=== PATIENT | male | born 1965 | race Caucasian/White ===

== ENCOUNTER 2019-12-24 11:53 | Outpatient (CLI) | payer OTHER, SELFPAY ==
--- NOTE | ~2019-12-24 | US_ITS ---
EXAMINATION: US venous doppler [facility] DATE: 12/24/2019 12:32 INDICATION: Lower limb edema, left leg injury TECHNIQUE: Barragan scale images without and with compression and Doppler images of the bilateral lower e xtremity veins were obtained. COMPARISON: None. FINDINGS: The right common femoral vein, profunda femoral vein, femoral vein, popliteal vein, peroneal trunk, p osterior tibial veins, and greater saphenous vein are patent. The left common femoral vein, profunda femoral vein, femoral vein, popliteal vein, peroneal trunk, po sterior tibial veins, and greater saphenous vein are patent. There is a 4.4 x 2.3 x 0.7 cm complex ar ea in the anterior aspect of the left mid calf without identifiable internal vascularity. IMPRESSION: 1. Patent bilateral lower extremity veins. No evidence of deep venous thrombosis. 2. Complex area in the left anterior calf which likely reflects a hematoma given history of trauma. C onsider further imaging if the palpable abnormality does not improve 10-14 days. Reviewed, dictated and finalized at location B. IMPRESSION: 1. Patent bilateral lower extremity veins. No evidence of deep venous thrombosi s. 2. Complex area in the left anterior calf which likely reflects a hematoma give n history of trauma. Consider further imaging if the palpable abnormality does not improve 10-14 days.
== END 2019-12-24 11:54 | disposition home or self-care (01) ==
LOC: CHSIMG 11:55
PROVIDERS: PCP Internal Medicine; Visit Provider Internal Medicine
DX: R60.9 Edema, unspecified (principal); R42 Dizziness and giddiness; E78.5 Hyperlipidemia, unspecified
CPT/HCPCS: 93970

== ENCOUNTER 2019-12-25 16:40 | Outpatient (CLI) | payer OTHER, SELFPAY ==
[2019-12-25 16:52] LABS: Basophils Absolute Auto 0.05 K/mm3 (0.00-0.10); Basophils Percent Auto 0.7 % (0.0-1.0); Eosinophils Absolute Auto 0.26 K/mm3 (0.02-0.50); Eosinophils Percent Auto 3.5 % (1.0-6.0); Hemoglobin 14.5 g/dL (14.0-18.0); Immature Granulocyte Absolute 0.02 K/mm3 (0.00-0.00); Immature Granulocyte Percent A 0.3 % (0.0-0.0); Lymphocytes Absolute Auto 2.38 K/mm3 (1.10-4.50); Lymphocytes Percent Auto 31.7 % (18.0-42.0); Mean Corpuscular Hemoglobin 29.8 pg (27.0-31.0); Mean Corpuscular Volume 90.5 fL (78.0-102.0); Mean Platelet Volume 9.3 fl (8.7-11.0); Monocytes Percent Auto 13.3 % (2.0-11.0); Neutrophils Absolute Auto 3.8 K/mm3 (1.7-7.2); Neutrophils Percent Auto 50.5 % (50.0-70.0); Platelet Count Result 334 K/mm3 (150-420); Red Blood Count 4.86 M/mm3 (4.70-6.10); White Blood Count 7.5 K/mm3 (4.8-10.8)
[2019-12-25 16:53] LABS: Add Urine Microscopic? NO; Appearance Urine Clear (Clear); Bilirubin Urine Negative (Negative); Blood Urine Negative (Negative); Color Urine Yellow (Yellow); Glucose Urine UA Negative (Negative); Ketones Urine Negative (Negative); Leukocyte Esterase Ur Negative (Negative); Nitrate Urine Negative (Negative); Protein Urine Negative (Negative); Specific Grav Ur >= 1.030 (1.010-1.020); Urobilinogen Urine 0.2 mg/dL (0.2-1.0); pH Urine 5.5 (5.0-8.0)
[2019-12-25 17:09] LABS: BNP < 5.0 pg/mL (0-100)
[2019-12-25 17:35] LABS: Alanine Aminotransferase 23 U/L (16-63); Albumin Level 4.1 g/dL (3.4-5.0); Alkaline Phosphatase 97 U/L (46-116); Anion Gap 11.9 mmol/L (7-16); Aspartate Amino Transferase 16 U/L (15-37); Bilirubin,Total 0.4 mg/dL (0.00-1.00); Blood Urea Nitrogen 16 mg/dL (7-18); Calcium 8.6 mg/dL (8.5-10.1); Carbon Dioxide 29 mmol/L (21-32); Chloride 103 mmol/L (98-108); Cholesterol 235 mg/dL (0-200); Estimated Glomerular Filt Rate > 60; Glucose 100 mg/dL (70-99); HDL Direct 38 mg/dL (40-60); LDL Cholesterol Calculated 173 mg/dL (<130); Osmolality Calculated 291 mOsm/kg (285-295); Potassium 3.9 mmol/L (3.5-5.1); Sodium 140 mmol/L (136-145); Thyroid Stimulating Hormone 0.81 uIU/mL (0.36-3.74); Total Protein 7.4 g/dL (6.4-8.2); Triglycerides 120 mg/dL (0-150)
== END 2019-12-25 16:41 | disposition home or self-care (01) ==
PROVIDERS: PCP Internal Medicine; Visit Provider Internal Medicine
DX: R60.0 Localized edema (principal); R42 Dizziness and giddiness; E78.5 Hyperlipidemia, unspecified
CPT/HCPCS: 36415; 80053; 80061; 81003; 83880; 84443; 85025

== ENCOUNTER 2020-06-11 00:44 | Outpatient (CLI) | payer OTHER, SELFPAY ==
[2020-06-11 18:03] LABS: SARS-CoV-2 RNA PCR Negative
== END 2020-06-11 00:45 | disposition home or self-care (01) ==
LOC: ANHCOVIDDT 00:45
PROVIDERS: PCP Internal Medicine; Visit Provider Internal Medicine Gastroenterology
DX: Z01.812 Encounter for preprocedural laboratory examination (principal); Z20.828 Contact with and (suspected) exposure to other viral communicable diseases
CPT/HCPCS: 87635; C9803; U0003

== ENCOUNTER 2020-06-14 01:50 | Day surgery (SDC) | payer OTHER, SELFPAY ==
[2020-06-09 13:28] VITALS: BMI 26.6
[2020-06-14 07:10] VITALS: BP 118/77; PULSE 79; RESP 16; TEMP 36.6; O2SAT 100; BMI 26.2
[2020-06-14] MEDS: LACTATED RINGERS 1,000 ML 150 ML IV CONT (07:27)
--- NOTE | 2020-06-14 07:41 | WPDANESEPPF ---
Anes - Initial Pre Proc Eval Procedure: Operation Date: 06/14/20 08:00 Proposed Procedures p Esophagogastroduodenoscopy & Screening Colonoscopy - Kirill Mcclellan MD Date/Time: 06/14/20 07:41 Surgeon: Kirill Mcclellan MD Pre Op Diagnosis: Green's Esophagus Patient Data Age: 54 Gender: M Height: 5 ft 9 in Weight: 80.7 kg Last Vital Signs Temp 36.6 C 06/14/20 07:10 Pulse 79 06/14/20 07:10 Resp 16 06/14/20 07:10 BP 118/77 06/14/20 07:10 Pulse Ox 100 06/14/20 07:10 Allergies Allergy/AdvReac Type Severity Reaction Status Date / Time Contrast Media Allergy Severe pt stated Uncoded 06/14/20 07:08 anaphylaxis symptoms Home Medications Medication Instructions Recorded Confirmed Type peg 3350-electrolytes 236 240 ml PO Q10M #4000 ml 05/25/20 Rx gram-22.74 gram-6.74 gram-5.86 gram solution Ranitadine 300 mg PO DAILY 06/09/20 06/09/20 History alprazolam 2 mg PO BID PRN 06/09/20 06/09/20 History atorvastatin 10 mg PO DAILY 06/09/20 06/09/20 History omeprazole 40 mg PO DAILY 06/09/20 06/09/20 History Patient hx anesthesia problems: none Family hx anesthesia problems: none PMFSH Past Medical History Medical History Anxiety Green esophagus Colon cancer screening GERD with esophagitis Tobacco abuse Social History Social History Smoking packs per day: 1 Smoking cigarettes per day: 20.0 Years smoked: 20 Smoking pack-years: 20.00 Smoking status: Current every day smoker Tobacco type: cigarettes Alcohol intake: never Substance use: current Substance use type: marijuana Other substance usage details: 1-2 EVERY 2 OR 3 MONTHS Last use: 03/2020 Living arrangements: alone Spiritual care concerns: No Anes - Eval Final PreProcedure Day of Procedure 06/14/20 07:41 Patient weight: overweight Heart: regular rate and rhythm Lungs: decreased breath sounds Airway: Mallampati scale class II Neurological: alert and oriented Last oral intake: >/= 8 hours ASA classification: III Emergent: no Anesthetic plan: proceed Anesthesia type and monitoring: general GIVS and standard monitoring Informed Consent: The patient's anesthetic plan and its attendant risks and benefits were discussed with the patient/family/POA. Questions were solicited and answers provided to the satisfaction of the patient/family/POA.
--- NOTE | 2020-06-14 08:07 | PM.HPGS ---
History of Present Illness History of Present Illness Consent: Risks, benefits, and alternatives have been discussed and questions answered. Patient agrees to proceed with procedure. Chief complaint: Sifuentes's Esophagus Narrative: Ascencion Sánchez is a 54 year old male with sifuentes's last egd more than 3 years ago, also due to have a colonoscopy Review of Systems Constitutional: Constitutional: Denies headache(s) and Denies weakness Eyes: Eyes: Denies blurry vision ENT: Reports Normal hearing present, Denies headache(s) and Denies neck pain Cardiovascular: Cardiovascular: Denies chest pain and Denies dyspnea Respiratory: Respiratory: Denies dyspnea Gastrointestinal: Gastrointestinal: Reports no additional gastrointestinal complaints Genitourinary: Genitourinary: Denies dysuria Musculoskeletal: Musculoskeletal: Denies neck pain Integumentary/Breasts: Skin/Breast: Denies dry skin Neurologic: Reports Normal hearing present, Denies headache(s) and Denies weakness Psychiatric: Psychiatric: Denies anxiety Endocrine: Endocrine: Denies change in body appearance Hematologic/Lymphatic: Hematologic/Lymphatic: Denies easy bleeding Allergic/Immunologic: Allergic/Immunologic: Denies urticaria PMFSH Past Medical History Medical History Anxiety Sifuentes esophagus Colon cancer screening GERD with esophagitis Tobacco abuse Social History Social History Smoking packs per day: 1 Smoking cigarettes per day: 20.0 Years smoked: 20 Smoking pack-years: 20.00 Smoking status: Current every day smoker Tobacco type: cigarettes Alcohol intake: never Substance use: current Substance use type: marijuana Other substance usage details: 1-2 EVERY 2 OR 3 MONTHS Last use: 03/2020 Living arrangements: alone Spiritual care concerns: No Meds Home Medications and Allergies Home Medications Medication Instructions Recorded Confirmed Type peg 3350-electrolytes 236 240 ml PO Q10M #4000 ml 05/25/20 Rx gram-22.74 gram-6.74 gram-5.86 gram solution Ranitadine 300 mg PO DAILY 06/09/20 06/09/20 History alprazolam 2 mg PO BID PRN 06/09/20 06/09/20 History atorvastatin 10 mg PO DAILY 06/09/20 06/09/20 History omeprazole 40 mg PO DAILY 06/09/20 06/09/20 History Allergies Allergy/AdvReac Type Severity Reaction Status Date / Time Contrast Media Allergy Severe pt stated Uncoded 06/14/20 07:08 anaphylaxis symptoms Vital Signs Vital Signs - 24 hr 06/14/20 07:10 Temperature 97.8 F Pulse Rate 79 Respiratory Rate 16 Blood Pressure 118/77 Pulse Oximetry 100 Exam Const: General: comfortable and no acute distress HENMT: General nose exam: Normal nares present Eyes: General: appearance normal, both eyes and all related structures Neck: Neck: no JVD Resp: Auscultation: clear to auscultation bilaterally Cardio: Rate: regular rate Rhythm: regular rhythm GI: Inspection: non-distended GI Palp: Yes Soft to palpation Skin: General skin exam: normal color Neuro: General: gait normal Speech: normal speech Extrem: General: normal to inspection Psych: Mental Status: mental status grossly normal Assessment and Plan Assessment and plan (1) 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
[2020-06-14 08:51] VITALS: BP 98/67; PULSE 85; RESP 25; O2SAT 98
[2020-06-14 09:01] VITALS: BP 104/71; PULSE 70; RESP 20; O2SAT 100
[2020-06-14 09:11] VITALS: BP 113/78; PULSE 70; RESP 19; O2SAT 100
--- NOTE | 2020-06-14 09:49 | SUR.PHASEII ---
pt waiting for ride. pt sitting in chair,dressed, on cell phone. denies needs. will continue to monitor.
== END 2020-06-14 10:09 | disposition home or self-care (01) ==
PROVIDERS: PCP Internal Medicine; Visit Provider Internal Medicine Gastroenterology
PROC: 0DJ08ZZ Inspection of Upper Intestinal Tract, Via Natural or Artificial Opening Endoscopic (ICD-10-PCS; CPT 43235; principal; 2020-06-14 08:00)
DX: Z12.11 Encounter for screening for malignant neoplasm of colon (principal); D12.3 Benign neoplasm of transverse colon; K21.0 Gastro-esophageal reflux disease with esophagitis; K44.9 Diaphragmatic hernia without obstruction or gangrene; K22.70 Barrett's esophagus without dysplasia; K29.50 Unspecified chronic gastritis without bleeding; F17.210 Nicotine dependence, cigarettes, uncomplicated; F12.90 Cannabis use, unspecified, uncomplicated
CPT/HCPCS: 45385; 43239; 88305; J2704; J7120

== ENCOUNTER 2020-09-01 14:09 | Outpatient (CLI) | payer OTHER, SELFPAY ==
[2020-09-01 14:25] LABS: Basophils Absolute Auto 0.05 K/mm3 (0.00-0.10); Basophils Percent Auto 0.7 % (0.0-1.0); Eosinophils Absolute Auto 0.21 K/mm3 (0.02-0.50); Eosinophils Percent Auto 2.8 % (1.0-6.0); Hematocrit 44.7 % (40.0-54.0); Hemoglobin 14.5 g/dL (14.0-18.0); Immature Granulocyte Absolute 0.04 K/mm3 (0.00-0.00); Immature Granulocyte Percent A 0.5 % (0.0-0.0); Lymphocytes Absolute Auto 2.25 K/mm3 (1.10-4.50); Lymphocytes Percent Auto 29.8 % (18.0-42.0); Mean Corpuscular HGB Conc 32.4 g/dL (32.0-36.0); Mean Corpuscular Hemoglobin 29.6 pg (27.0-31.0); Mean Corpuscular Volume 91.2 fL (78.0-102.0); Mean Platelet Volume 9.4 fl (8.7-11.0); Monocytes Absolute Auto 0.66 K/mm3 (0.10-0.90); Monocytes Percent Auto 8.8 % (2.0-11.0); Neutrophils Absolute Auto 4.3 K/mm3 (1.7-7.2); Neutrophils Percent Auto 57.4 % (50.0-70.0); Platelet Count Result 320 K/mm3 (150-420); Red Cell Distribution Width 14.1 % (11.6-14.4); White Blood Count 7.5 K/mm3 (4.8-10.8)
[2020-09-01 14:30] LABS: Add Urine Microscopic? YES; Appearance Urine Cloudy (Clear); Bilirubin Urine Negative (Negative); Blood Urine Negative (Negative); Color Urine Yellow (Yellow); Glucose Urine UA Negative (Negative); Ketones Urine Negative (Negative); Leukocyte Esterase Ur Negative (Negative); Nitrate Urine Negative (Negative); Protein Urine Negative (Negative); Specific Grav Ur 1.025 (1.010-1.020); pH Urine 6.5 (5.0-8.0)
[2020-09-01 14:44] LABS: RBC Urine 0-2 /hpf (0-2); WBC Urine 0-3 /hpf (0-3)
[2020-09-01 14:45] LABS: Amorphous Sediment Urine Few; Bacteria Urine Trace /hpf
[2020-09-01 16:11] LABS: Alanine Aminotransferase 34 U/L (16-63); Albumin Level 4.2 g/dL (3.4-5.0); Alkaline Phosphatase 101 U/L (46-116); Anion Gap 10 mmol/L (8-16); Aspartate Amino Transferase 20 U/L (15-37); Bilirubin,Total 0.3 mg/dL (0.00-1.00); Blood Urea Nitrogen 14 mg/dL (7-18); Calcium 9.1 mg/dL (8.5-10.1); Carbon Dioxide 31 mmol/L (21-32); Chloride 101 mmol/L (98-108); Cholesterol 275 mg/dL (0-200); Estimated Glomerular Filt Rate > 60; Glucose 110 mg/dL (70-99); HDL Direct 31 mg/dL (40-60); LDL Cholesterol Calculated 192 mg/dL (<130); Osmolality Calculated 295 mOsm/kg (285-295); Potassium 3.7 mmol/L (3.5-5.1); Prostate Specific Antigen 0.7 ng/mL (< OR = 4.0); Sodium 142 mmol/L (136-145); Total Protein 7.6 g/dL (6.4-8.2); Triglycerides 261 mg/dL (0-150)
[2020-09-02 13:53] LABS: Hemoglobin A1C 6.3 % (<5.7)
== END 2020-09-01 14:10 | disposition home or self-care (01) ==
LOC: CHSLAB 14:11
PROVIDERS: PCP Internal Medicine; Visit Provider Internal Medicine
DX: Z00.00 Encounter for general adult medical examination without abnormal findings (principal); E78.5 Hyperlipidemia, unspecified; Z12.5 Encounter for screening for malignant neoplasm of prostate; R73.9 Hyperglycemia, unspecified
CPT/HCPCS: 36415; 80053; 80061; 81001; 83036; 84153; 85025; G0103

== ENCOUNTER 2020-11-24 13:14 | Outpatient (CLI) | payer OTHER, SELFPAY ==
[2020-11-24 13:36] LABS: Hemoglobin A1C 6.2 % (<5.7)
[2020-11-24 14:09] LABS: Alanine Aminotransferase 34 U/L (16-63); Albumin Level 4.2 g/dL (3.4-5.0); Alkaline Phosphatase 108 U/L (46-116); Anion Gap 10 mmol/L (8-16); Aspartate Amino Transferase 18 U/L (15-37); Bilirubin,Total 0.6 mg/dL (0.00-1.00); Blood Urea Nitrogen 12 mg/dL (7-18); Carbon Dioxide 30 mmol/L (21-32); Chloride 98 mmol/L (98-108); Cholesterol 254 mg/dL (0-200); Estimated Glomerular Filt Rate > 60; Glucose 106 mg/dL (70-99); HDL Direct 36 mg/dL (40-60); LDL Cholesterol Calculated 183 mg/dL (<130); Osmolality Calculated 285 mOsm/kg (285-295); Potassium 3.8 mmol/L (3.5-5.1); Sodium 138 mmol/L (136-145); Thyroid Stimulating Hormone 0.75 uIU/mL (0.36-3.74); Total Protein 7.5 g/dL (6.4-8.2); Triglycerides 175 mg/dL (0-150)
== END 2020-11-24 13:15 | disposition home or self-care (01) ==
LOC: CHSLAB 13:17
PROVIDERS: PCP Internal Medicine; Visit Provider Internal Medicine
DX: R73.03 Prediabetes (principal); E78.5 Hyperlipidemia, unspecified
CPT/HCPCS: 36415; 80053; 80061; 83036; 84443

== ENCOUNTER 2021-07-31 00:39 | Day surgery (SDC) | payer OTHER, SELFPAY ==
[2021-07-25 12:41] VITALS: BMI 25.1
[2021-07-31 09:25] VITALS: BP 123/76; PULSE 82; RESP 18; TEMP 36.6; O2SAT 100
[2021-07-31] MEDS: LACTATED RINGERS 1,000 ML 150 ML IV CONT (09:27)
--- NOTE | 2021-07-31 09:40 | P.PNAN_ITS ---
Anes - Initial Pre Proc Eval Procedure: Operation Date: 07/31/21 10:15 Proposed Procedures p Esophagogastroduodenoscopy - Kirill Mcclellan MD Date/Time: 07/31/21 09:40 Surgeon: Kirill Mcclellan MD Pre Op Diagnosis: sifuentes's esophagus Patient Data Age: 55 Gender: M Height: 1.75 m Weight: 82.7 kg Last Vital Signs Temp 36.6 C 07/31/21 09:25 Pulse 82 07/31/21 09:25 Resp 18 07/31/21 09:25 BP 123/76 07/31/21 09:25 Pulse Ox 100 07/31/21 09:25 Allergies Allergy/AdvReac Type Severity Reaction Status Date / Time Contrast Media Allergy Severe pt stated Uncoded 07/31/21 09:24 anaphylaxis symptoms Home Medications Medication Instructions Recorded Confirmed Type alprazolam 2 mg PO BID PRN 06/09/20 07/31/21 History atorvastatin 10 mg PO DAILY 06/09/20 07/31/21 History pantoprazole 40 mg tablet,delayed 40 mg PO BID #60 tablet 06/23/20 07/31/21 Rx release Patient hx anesthesia problems: none Family hx anesthesia problems: none Results Review: All pre-operative results and documents have been reviewed as part of the pre-operative evaluation. [facility] Past Medical History Medical History Anxiety Sifuentes esophagus Colon cancer screening GERD with esophagitis Tobacco abuse Social History Social History Smoking packs per day: 1 Smoking cigarettes per day: 20.0 Years smoked: 20 Smoking pack-years: 20.00 Smoking status: Current every day smoker Tobacco type: cigarettes Alcohol intake: never Substance use: current Substance use type: does not use Other substance usage details: 1-2 EVERY 2 OR 3 MONTHS Last use: 03/2020 Spiritual care concerns: No Anes - Eval Final PreProcedure Day of Procedure 07/31/21 09:40 Patient weight: overweight Heart: regular rate and rhythm Lungs: decreased breath sounds Airway: Mallampati scale class II Neurological: alert and oriented Last oral intake: >/= 8 hours ASA classification: III Emergent: no Anesthetic plan: proceed Anesthesia type and monitoring: general GIVS and standard monitoring Results Review: All pre-operative results and documents have been reviewed as part of the pre-operative evaluation. Informed Consent: The patient's anesthetic plan and its attendant risks and benefits were discussed with the patient/family/POA. Questions were solicited and answers provided to the satisfaction of the patient/family/POA.
--- NOTE | 2021-07-31 09:42 | PM.HPGS ---
History of Present Illness History of Present Illness Consent: Risks, benefits, and alternatives have been discussed and questions answered. Patient agrees to proceed with procedure. Chief complaint: sifuentes's esophagus Narrative: Ascencion Sánchez is a 55 year old male with erosive esophagitis, HH and known Sifeuntes's on ppi twice daily Review of Systems Constitutional: Constitutional: Denies headache(s) and Denies weakness Eyes: Eyes: Denies blurry vision ENT: Reports Normal hearing present, Denies headache(s) and Denies neck pain Cardiovascular: Cardiovascular: Denies chest pain and Denies dyspnea Respiratory: Respiratory: Denies dyspnea Gastrointestinal: Gastrointestinal: Reports no additional gastrointestinal complaints Genitourinary: Genitourinary: Denies dysuria Musculoskeletal: Musculoskeletal: Denies neck pain Integumentary/Breasts: Skin/Breast: Denies dry skin Neurologic: Reports Normal hearing present, Denies headache(s) and Denies weakness Psychiatric: Psychiatric: Denies anxiety Endocrine: Endocrine: Denies change in body appearance Hematologic/Lymphatic: Hematologic/Lymphatic: Denies easy bleeding Allergic/Immunologic: Allergic/Immunologic: Denies urticaria [facility] Past Medical History Medical History (Updated 07/31/21 @ 09:43 by Kirill Mcclellan MD) Anxiety Sifuentes esophagus Colon cancer screening GERD with esophagitis Hiatal hernia Tobacco abuse Social History Social History Smoking packs per day: 1 Smoking cigarettes per day: 20.0 Years smoked: 20 Smoking pack-years: 20.00 Smoking status: Current every day smoker Tobacco type: cigarettes Alcohol intake: never Substance use: current Substance use type: does not use Other substance usage details: 1-2 EVERY 2 OR 3 MONTHS Last use: 03/2020 Spiritual care concerns: No Meds Home Medications and Allergies Home Medications Medication Instructions Recorded Confirmed Type alprazolam 2 mg PO BID PRN 06/09/20 07/31/21 History atorvastatin 10 mg PO DAILY 06/09/20 07/31/21 History pantoprazole 40 mg tablet,delayed 40 mg PO BID #60 tablet 06/23/20 07/31/21 Rx release Allergies Allergy/AdvReac Type Severity Reaction Status Date / Time Contrast Media Allergy Severe pt stated Uncoded 07/31/21 09:24 anaphylaxis symptoms Vital Signs Vital Signs - 24 hr 07/31/21 09:25 Temperature 97.9 F Pulse Rate 82 Respiratory Rate 18 Blood Pressure 123/76 Pulse Oximetry 100 Exam Const: General: comfortable and no acute distress HENMT: General nose exam: Normal nares present Eyes: General: appearance normal, both eyes and all related structures Neck: Neck: no JVD Resp: Auscultation: clear to auscultation bilaterally Cardio: Rate: regular rate Rhythm: regular rhythm GI: Inspection: non-distended GI Palp: Yes Soft to palpation Skin: General skin exam: normal color Neuro: General: gait normal Speech: normal speech Extrem: General: normal to inspection Psych: Mental Status: mental status grossly normal Assessment and Plan Assessment and plan (1) 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
[2021-07-31 09:53] VITALS: BP 107/69; PULSE 88; RESP 23; O2SAT 99
[2021-07-31 10:03] VITALS: BP 104/73; PULSE 79; RESP 19; O2SAT 99
[2021-07-31 10:13] VITALS: BP 107/67; PULSE 73; RESP 18; O2SAT 100
--- NOTE | 2021-07-31 10:28 | SUR.PHASEII ---
Called pt's stake driver who states it will be another 35 minutes until she arrives.
== END 2021-07-31 11:03 | disposition home or self-care (01) ==
PROVIDERS: PCP Internal Medicine; Visit Provider Internal Medicine Gastroenterology
PROC: 0DJ08ZZ Inspection of Upper Intestinal Tract, Via Natural or Artificial Opening Endoscopic (ICD-10-PCS; CPT 43235; principal; 2021-07-31 10:15)
DX: K21.00 Gastro-esophageal reflux disease with esophagitis, without bleeding (principal); K22.70 Barrett's esophagus without dysplasia; K44.9 Diaphragmatic hernia without obstruction or gangrene; K29.50 Unspecified chronic gastritis without bleeding; F41.9 Anxiety disorder, unspecified; F17.210 Nicotine dependence, cigarettes, uncomplicated
CPT/HCPCS: 43239; 88305; J2704; J7120

== ENCOUNTER 2022-03-27 08:51 | Outpatient (CLI) | payer OTHER, SELFPAY ==
[2022-03-27 09:09] LABS: Basophils Absolute Auto 0.03 K/mm3 (0.00-0.10); Basophils Percent Auto 0.4 % (0.0-1.0); Eosinophils Absolute Auto 0.17 K/mm3 (0.02-0.50); Eosinophils Percent Auto 2.1 % (1.0-6.0); Hematocrit 44.2 % (40.0-54.0); Hemoglobin 14.7 g/dL (14.0-18.0); Immature Granulocyte Absolute 0.05 K/mm3 (0.00-0.00); Immature Granulocyte Percent A 0.6 % (0.0-0.0); Lymphocytes Absolute Auto 2.01 K/mm3 (1.10-4.50); Lymphocytes Percent Auto 24.3 % (18.0-42.0); Mean Corpuscular HGB Conc 33.3 g/dL (32.0-36.0); Mean Corpuscular Hemoglobin 30.4 pg (27.0-31.0); Mean Corpuscular Volume 91.3 fL (78.0-102.0); Mean Platelet Volume 9.3 fl (8.7-11.0); Monocytes Absolute Auto 0.81 K/mm3 (0.10-0.90); Monocytes Percent Auto 9.8 % (2.0-11.0); Neutrophils Absolute Auto 5.2 K/mm3 (1.7-7.2); Neutrophils Percent Auto 62.8 % (50.0-70.0); Platelet Count Result 316 K/mm3 (150-420); Red Blood Count 4.84 M/mm3 (4.70-6.10); White Blood Count 8.3 K/mm3 (4.8-10.8)
[2022-03-27 10:47] LABS: Anion Gap 7 mmol/L (8-16); Estimated Glomerular Filt Rate > 60; LDL Cholesterol Calculated 177 mg/dL (<130); Osmolality Calculated 288 mOsm/kg (285-295)
[2022-03-27 11:07] LABS: Calcium 8.8 mg/dL (8.5-10.1)
[2022-03-27 11:08] LABS: Blood Urea Nitrogen 15 mg/dL (7-18); Carbon Dioxide 30 mmol/L (21-32); Chloride 102 mmol/L (98-108); Glucose 100 mg/dL (70-99); Potassium 3.9 mmol/L (3.5-5.1); Sodium 139 mmol/L (136-145)
[2022-03-27 11:09] LABS: Alanine Aminotransferase 31 U/L (16-63); Alkaline Phosphatase 125 U/L (46-116); Aspartate Amino Transferase 18 U/L (15-37); Bilirubin,Total 0.3 mg/dL (0.00-1.00); Cholesterol 260 mg/dL (0-200); HDL Direct 35 mg/dL (40-60); Prostate Specific Antigen 0.8 ng/mL (< OR = 4.0); Total Protein 7.4 g/dL (6.4-8.2); Triglycerides 242 mg/dL (0-150)
[2022-03-27 11:10] LABS: Thyroid Stimulating Hormone 0.88 uIU/mL (0.36-3.74)
[2022-03-28 16:39] LABS: Hemoglobin A1C 6.4 % (<5.7)
== END 2022-03-27 08:52 | disposition home or self-care (01) ==
LOC: CHSLAB 08:52
PROVIDERS: PCP Internal Medicine; Visit Provider Internal Medicine
DX: Z00.00 Encounter for general adult medical examination without abnormal findings (principal); I25.10 Atherosclerotic heart disease of native coronary artery without angina pectoris; E78.5 Hyperlipidemia, unspecified; Z12.5 Encounter for screening for malignant neoplasm of prostate; R73.01 Impaired fasting glucose
CPT/HCPCS: 36415; 80053; 80061; 83036; 84153; 84443; 85025; G0103

== ENCOUNTER 2022-08-16 10:49 | Outpatient (CLI) | payer OTHER, SELFPAY ==
--- NOTE | ~2022-08-16 | CT_ITS ---
EXAMINATION: CT diagnostic chest wo con DATE: 08/16/2022 11:04 INDICATION: Lung nodules TECHNIQUE: Computed tomography (CT) of the chest was performed without intravenous contrast. The dose -length product (DLP) was 125.98 mGy-cm. 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 COMPARISON: None FINDINGS: There is a 2 mm nodule of the right upper lobe on image 23. Calcified pulmonary nodules and calcified mediastinal lymph nodes are consistent with old granulomatous disease. There is dependent atelectasis of the lungs. No pleural effusion or pneumothorax. There is mild bilateral gynecomastia. Calcified coronary artery atherosclerosis is noted. There is mild thoracic spondylosis. IMPRESSION: 1. 2 mm nodule of the right upper lobe, likely old granulomatous disease. Reviewed, dictated and finalized at location F. PHYSICS ENGINEER
== END 2022-08-16 10:50 | disposition home or self-care (01) ==
PROVIDERS: PCP Internal Medicine; Visit Provider Internal Medicine Pulmonary Disease
DX: R91.1 Solitary pulmonary nodule (principal)
CPT/HCPCS: 71250

== ENCOUNTER 2022-11-13 12:25 | Outpatient (CLI) | payer OTHER, SELFPAY ==
--- NOTE | 2022-11-14 07:20 | WPDPFTINT ---
PFT Procedure Performed PFT Procedure Performed Spirometry with Pre/Post Bronchodilator Plethysmography (Lung Vol) Diffusing Cap (DLCO) Flow Vol Loop PFT Interpretation This is a pulmonary function test with pre and post-bronchodilator spirometry, plethysmography and diffusing capacity. The test was performed and results interpreted in accordance with the 2019 and 2005 ATS/ERS Task Force guidelines respectively using the Global Lung Function Initiative-2012 reference equations. Patient demonstrated good effort and cooperation. Reproducibility criteria were met. The quality of the pre bronchodilator spirometry maneuver was Grade A and post bronchodilator spirometry maneuver was Grade A. Findings: Spirometry: the contour the inspiratory and expiratory flow tracing are normal. The pre bronchodilator FVC is 3.8 L, 84% predicted. The pre bronchodilator FEV1 is 2.91 L, 81% predicted. The pre bronchodilator FEV1: FVC ratio 75%. The post bronchodilator FVC is 3.94 L, representing a 2% increase. The post bronchodilator FEV1 is 3.09 L, representing a 6% increase. The post bronchodilator FEV1: FVC ratio 78%. Plethysmography: The total lung capacity is 6.19 L, 92% predicted. The functional residual capacity is 3.12 L, 90% predicted. The residual volume is 2.32 L, 110% predicted. Diffusing capacity: The diffusing capacity unadjusted for hemoglobin and carboxyhemoglobin is 24.3, 84% predicted. The diffusing capacity adjusted for alveolar volume is 4.77, 108% predicted. Impression: The spirometry is normal without evidence of an obstructive abnormality. There is no significant improvement after inhaling a single dose of albuterol. The lung volumes are normal. The diffusing capacity is normal. There are no prior studies for comparison
== END 2022-11-13 12:26 | disposition home or self-care (01) ==
LOC: ANHPFT 12:26
PROVIDERS: Visit Provider Internal Medicine Pulmonary Disease
DX: R06.00 Dyspnea, unspecified (principal)
CPT/HCPCS: 94060; 94726; 94729

== ENCOUNTER 2023-04-30 11:09 | Outpatient (CLI) | payer OTHER, SELFPAY ==
[2023-04-30 11:31] LABS: Basophils Absolute Auto 0.05 K/mm3 (0.00-0.10); Basophils Percent Auto 0.5 % (0.0-1.0); Eosinophils Absolute Auto 0.16 K/mm3 (0.02-0.50); Eosinophils Percent Auto 1.6 % (1.0-6.0); Hematocrit 46.3 % (40.0-54.0); Hemoglobin 15.3 g/dL (14.0-18.0); Immature Granulocyte Absolute 0.06 K/mm3 (0.00-0.00); Immature Granulocyte Percent A 0.6 % (0.0-0.0); Lymphocytes Absolute Auto 2.31 K/mm3 (1.10-4.50); Lymphocytes Percent Auto 23.5 % (18.0-42.0); Mean Corpuscular Hemoglobin 30.2 pg (27.0-31.0); Mean Corpuscular Volume 91.3 fL (78.0-102.0); Mean Platelet Volume 9.2 fl (8.7-11.0); Monocytes Absolute Auto 0.79 K/mm3 (0.10-0.90); Neutrophils Absolute Auto 6.5 K/mm3 (1.7-7.2); Neutrophils Percent Auto 65.8 % (50.0-70.0); Platelet Count Result 338 K/mm3 (150-420); Red Blood Count 5.07 M/mm3 (4.70-6.10); Red Cell Distribution Width 14.4 % (11.6-14.4); White Blood Count 9.8 K/mm3 (4.8-10.8)
[2023-04-30 11:35] LABS: Appearance Urine Clear (Clear); Bilirubin Urine Negative (Negative); Blood Urine Negative (Negative); Color Urine Light Yellow (Yellow); Glucose Urine UA Negative (Negative); Ketones Urine Negative (Negative); Leukocyte Esterase Ur Negative (Negative); Nitrate Urine Negative (Negative); Protein Urine Negative (Negative); Specific Grav Ur 1.025 (1.010-1.020)
[2023-04-30 11:37] LABS: Add Urine Microscopic? NO
[2023-04-30 11:41] LABS: Hemoglobin A1C 6.3 % (<5.7)
[2023-04-30 12:15] LABS: Alanine Aminotransferase 28 U/L (16-63); Albumin Level 3.9 g/dL (3.4-5.0); Alkaline Phosphatase 115 U/L (46-116); Anion Gap 7 mmol/L (8-16); Aspartate Amino Transferase 14 U/L (15-37); Bilirubin,Total 0.4 mg/dL (0.00-1.00); Blood Urea Nitrogen 15 mg/dL (7-18); Carbon Dioxide 30 mmol/L (21-32); Chloride 101 mmol/L (98-108); Cholesterol 268 mg/dL (0-200); Estimated Glomerular Filt Rate > 60; Glucose 107 mg/dL (70-99); HDL Direct 37 mg/dL (40-60); LDL Cholesterol Calculated 182 mg/dL (<130); Osmolality Calculated 286 mOsm/kg (285-295); Potassium 4.3 mmol/L (3.5-5.1); Prostate Specific Antigen 0.5 ng/mL (< OR = 4.0); Sodium 138 mmol/L (136-145); Thyroid Stimulating Hormone 0.57 uIU/mL (0.36-3.74); Total Protein 7.4 g/dL (6.4-8.2); Triglycerides 245 mg/dL (0-150)
== END 2023-04-30 11:10 | disposition home or self-care (01) ==
LOC: CHSLAB 11:10
PROVIDERS: PCP Internal Medicine; Visit Provider Internal Medicine
DX: E78.5 Hyperlipidemia, unspecified (principal); R73.03 Prediabetes
CPT/HCPCS: 36415; 80053; 80061; 81003; 83036; 84153; 84443; 85025; G0103

== ENCOUNTER 2024-01-28 13:13 | Outpatient (CLI) | payer OTHER, SELFPAY ==
[2024-01-28 13:50] LABS: Hemoglobin A1C 6.2 % (<5.7)
[2024-01-28 14:10] LABS: Alanine Aminotransferase 38 U/L (16-63); Alkaline Phosphatase 116 U/L (46-116); Anion Gap 8 mmol/L (4-12); Aspartate Amino Transferase 21 U/L (15-37); Bilirubin,Total 0.2 mg/dL (0.00-1.00); Blood Urea Nitrogen 16 mg/dL (7-18); Calcium 9.4 mg/dL (8.5-10.1); Carbon Dioxide 29 mmol/L (21-32); Chloride 104 mmol/L (98-108); Cholesterol 294 mg/dL (0-200); Estimated Glomerular Filt Rate > 60; Glucose 124 mg/dL (70-99); HDL Direct 35 mg/dL (40-60); LDL Cholesterol Calculated 200 mg/dL (<130); Osmolality Calculated 294 mOsm/kg (285-295); Potassium 4.3 mmol/L (3.5-5.1); Sodium 141 mmol/L (136-145); Total Protein 7.1 g/dL (6.4-8.2); Triglycerides 296 mg/dL (0-150)
== END 2024-01-28 13:14 | disposition home or self-care (01) ==
LOC: CHSLAB 13:14
PROVIDERS: PCP Internal Medicine; Visit Provider Internal Medicine
DX: R73.03 Prediabetes (principal); E78.5 Hyperlipidemia, unspecified
CPT/HCPCS: 36415; 80053; 80061; 83036

== ENCOUNTER 2024-07-08 08:41 | Outpatient (CLI) | payer OTHER, SELFPAY ==
[2024-07-08 09:00] LABS: Basophils Absolute Auto 0.03 K/mm3 (0.00-0.10); Basophils Percent Auto 0.4 % (0.0-1.0); Eosinophils Absolute Auto 0.16 K/mm3 (0.02-0.50); Eosinophils Percent Auto 1.9 % (1.0-6.0); Hematocrit 46.5 % (40.0-54.0); Hemoglobin 15.4 g/dL (14.0-18.0); Immature Granulocyte Absolute 0.04 K/mm3 (0.00-0.00); Immature Granulocyte Percent A 0.5 % (0.0-0.0); Lymphocytes Absolute Auto 2.11 K/mm3 (1.10-4.50); Lymphocytes Percent Auto 24.9 % (18.0-42.0); Mean Corpuscular HGB Conc 33.1 g/dL (32-36); Mean Corpuscular Hemoglobin 29.7 pg (27.0-31.0); Mean Corpuscular Volume 89.6 fL (78.0-102.0); Mean Platelet Volume 8.9 fl (8.7-11.0); Monocytes Percent Auto 10.6 % (2.0-11.0); Neutrophils Absolute Auto 5.23 K/mm3 (1.70-7.20); Neutrophils Percent Auto 61.7 % (50.0-70.0); Platelet Count Result 294 K/mm3 (150-420); Red Blood Count 5.19 M/mm3 (4.70-6.10); Red Cell Distribution Width 14.6 % (11.6-14.4); White Blood Count 8.5 K/mm3 (4.8-10.8)
[2024-07-08 09:07] LABS: Add Urine Microscopic? NO; Appearance Urine Clear (Clear); Bilirubin Urine Negative (Negative); Blood Urine Negative (Negative); Color Urine Light Yellow (Yellow); Glucose Urine UA Negative (Negative); Ketones Urine Negative (Negative); Leukocyte Esterase Ur Negative (Negative); Nitrate Urine Negative (Negative); Protein Urine Negative (Negative); Specific Grav Ur >= 1.030 (1.010-1.020); Urobilinogen Urine 0.2 mg/dL (0.2-1.0)
[2024-07-08 09:22] LABS: Hemoglobin A1C 6.4 % (<5.7)
[2024-07-08 09:51] LABS: Anion Gap 8 mmol/L (4-12); Blood Urea Nitrogen 15 mg/dL (7-18); Carbon Dioxide 30 mmol/L (21-32); Chloride 100 mmol/L (98-108); Estimated Glomerular Filt Rate > 60; Glucose 131 mg/dL (70-99); Sodium 138 mmol/L (136-145)
[2024-07-08 09:52] LABS: Alanine Aminotransferase 34 U/L (16-63); Albumin Level 3.7 g/dL (3.4-5.0); Alkaline Phosphatase 109 U/L (46-116); Aspartate Amino Transferase 12 U/L (15-37); Bilirubin,Total 0.3 mg/dL (0.00-1.00); Calcium 8.6 mg/dL (8.5-10.1); Cholesterol 267 mg/dL (0-200); HDL Direct 36 mg/dL (40-60); LDL Cholesterol Calculated 185 mg/dL (<130); Osmolality Calculated 288 mOsm/kg (285-295); Prostate Specific Antigen 0.3 ng/mL (< OR = 4.0); Thyroid Stimulating Hormone 1.32 uIU/mL (0.36-3.74); Total Protein 7.2 g/dL (6.4-8.2); Triglycerides 232 mg/dL (0-150)
== END 2024-07-08 08:42 | disposition home or self-care (01) ==
PROVIDERS: PCP Internal Medicine; Visit Provider Internal Medicine
DX: Z00.00 Encounter for general adult medical examination without abnormal findings (principal); R73.03 Prediabetes; E78.5 Hyperlipidemia, unspecified
CPT/HCPCS: 36415; 80053; 80061; 81003; 83036; 84153; 84443; 85025; G0103

== ENCOUNTER 2024-08-13 01:42 | Day surgery (SDC) | payer OTHER, SELFPAY ==
[2024-08-05 14:57] VITALS: BMI 28.3
[2024-08-13 09:24] VITALS: BP 123/76; PULSE 86; RESP 20; TEMP 36.6; O2SAT 100
[2024-08-13] MEDS: LACTATED RINGERS 1,000 ML 150 ML IV CONT (09:26)
[2024-08-13 09:34] LABS: Glucose Point of Care 107 mg/dl (65-105)
--- NOTE | 2024-08-13 09:36 | P.PNAN_ITS ---
Anes - Initial Pre Proc Eval Procedure: Operation Date: 08/13/24 10:30 Proposed Procedures p Esophagogastroduodenoscopy - Taz Sun MD Date/Time: 08/13/24 09:36 Surgeon: Taz Sun MD Pre Op Diagnosis: Green's Patient Data Age: 58 Gender: M Height: 1.75 m Weight: 87.9 kg Last Vital Signs Temp 36.6 C 08/13/24 09:24 Pulse 86 08/13/24 09:24 Resp 20 08/13/24 09:24 BP 123/76 08/13/24 09:24 Pulse Ox 100 08/13/24 09:24 O2 Del Method Room Air 08/13/24 09:24 Allergies Allergy/AdvReac Type Severity Reaction Status Date / Time Contrast Media Allergy Severe pt stated Uncoded 08/13/24 09:20 anaphylaxis symptoms Home Medications Medication Instructions Recorded Confirmed Type alprazolam 2 mg tablet 2 mg PO BID PRN Anxiety 06/09/20 08/13/24 History atorvastatin 10 mg tablet 10 mg PO DAILY 06/09/20 08/13/24 History pantoprazole 40 mg tablet,delayed 40 mg PO BID #60 tabs 06/23/20 08/13/24 Rx release esomeprazole magnesium 40 mg 40 mg PO DAILY 07/10/22 08/13/24 History capsule,delayed release (Nexium) ezetimibe 10 mg tablet 10 mg PO DAILY 08/05/24 08/13/24 History metformin 500 mg tablet,extended 500 mg PO DAILY 08/05/24 08/13/24 History release 24 hr Laboratory Tests 08/13/24 09:32 POC Capillary Glucose 107 H mg/dl (65-105) Patient hx anesthesia problems: none Family hx anesthesia problems: none Results Review: All pre-operative results and documents have been reviewed as part of the pre- operative evaluation. [facility] Past Medical History Medical History Anxiety Green esophagus Colon cancer screening GERD with esophagitis Hiatal hernia High cholesterol History of kidney stones Pre-diabetes Tobacco abuse Surgical History Surgical History H/O excision of mass H/O rhinoplasty History of appendectomy [place] teeth extracted Social History Social History Smoking packs per day: 1 Smoking cigarettes per day: 20.0 Years smoked: 20 Smoking pack-years: 20.00 Smoking status: Current every day smoker Tobacco type: cigarettes Alcohol intake: never Substance use: current Substance use type: marijuana Other substance usage details: 1-2 EVERY 2 OR 3 MONTHS Last use: 03/2020 Living arrangements: alone Spiritual care concerns: No Anes - Eval Final PreProcedure Day of Procedure 08/13/24 09:36 Patient weight: overweight Heart: regular rate and rhythm Lungs: clear to auscultation Airway: Mallampati scale class II Neurological: alert and oriented Last oral intake: >/= 8 hours ASA classification: III Emergent: no Anesthetic plan: proceed Anesthesia type and monitoring: general GIVS and standard monitoring Results Review: All pre-operative results and documents have been reviewed as part of the pre- operative evaluation. Informed Consent: The patient's anesthetic plan and its attendant risks and benefits were discussed with the patient/family/POA. Questions were solicited and answers provided to the satisfaction of the patient/family/POA.
--- NOTE | 2024-08-13 10:23 | P.HP_ITS ---
H&P: HPI History of Present Illness Date/Time: 08/13/24 10:23 Chief Complaint: Heartburn. Narrative: the patient has a history of Green's esophagus. His last EGD in 2020 showed a small hiatal hernia and a 2 cm segment Green's esophagus associated with esophagitis. Biopsy did not show dysplasia. He is compliant with PPIs every day, currently esomeprazole. Review of Systems Review of Systems: All systems reviewed & are unremarkable except as noted in HPI and below PMFSH Past Medical History Medical History Anxiety Green esophagus Colon cancer screening GERD with esophagitis Hiatal hernia High cholesterol History of kidney stones Pre-diabetes Tobacco abuse Surgical History Surgical History H/O excision of mass H/O rhinoplasty History of appendectomy [place] teeth extracted Social History Social History Smoking packs per day: 1 Smoking cigarettes per day: 20.0 Years smoked: 20 Smoking pack-years: 20.00 Smoking status: Current every day smoker Tobacco type: cigarettes Alcohol intake: never Substance use: current Substance use type: marijuana Other substance usage details: 1-2 EVERY 2 OR 3 MONTHS Last use: 03/2020 Living arrangements: alone Spiritual care concerns: No Meds Home Medications and Allergies Home Medications Medication Instructions Recorded Confirmed Type alprazolam 2 mg tablet 2 mg PO BID PRN Anxiety 06/09/20 08/13/24 History atorvastatin 10 mg tablet 10 mg PO DAILY 06/09/20 08/13/24 History pantoprazole 40 mg tablet,delayed 40 mg PO BID #60 tabs 06/23/20 08/13/24 Rx release esomeprazole magnesium 40 mg 40 mg PO DAILY 07/10/22 08/13/24 History capsule,delayed release (Nexium) ezetimibe 10 mg tablet 10 mg PO DAILY 08/05/24 08/13/24 History metformin 500 mg tablet,extended 500 mg PO DAILY 08/05/24 08/13/24 History release 24 hr Allergies Allergy/AdvReac Type Severity Reaction Status Date / Time Contrast Media Allergy Severe pt stated Uncoded 08/13/24 09:20 anaphylaxis symptoms Vital Signs Vital Signs - 24 hr 08/13/24 09:24 Temperature 97.9 F Pulse Rate 86 Respiratory Rate 20 Blood Pressure 123/76 Pulse Oximetry 100 Oxygen Delivery Room Air Exam Const: General: cooperative and healthy appearing Resp: Effort & Inspection: normal respiratory effort and able to speak in complete sentences Auscultation: clear to auscultation bilaterally Cardio: Rate: regular rate Rhythm: regular rhythm GI: Inspection: normal to inspection GI Palp: No No hepatosplenomegaly present Auscultation: normal bowel sounds Rectal Exam: deferred Skin: General skin exam: normal color Psych: Appearance: grossly normal Mental Status: mental status grossly normal Assessment and Plan Assessment and plan (1) Green esophagus: Qualifiers: Green's esophagus type: without dysplasia Qualified Code(s): K22.70 - Green's esophagus without dysplasia Code(s): K22.70 - Green's esophagus without dysplasia Status: Acute Assessment and Plan: The patient is deemed a good candidate for the procedure. Consent signed. Will proceed. (2) Hiatal hernia: Code(s): K44.9 - Diaphragmatic hernia without obstruction or gangrene Status: Acute
[2024-08-13 10:40] VITALS: BP 88/59; PULSE 91; RESP 23; O2SAT 95
[2024-08-13 10:50] VITALS: BP 92/59; PULSE 82; RESP 21; O2SAT 94
[2024-08-13 11:00] VITALS: BP 99/64; PULSE 77; RESP 21; O2SAT 94
== END 2024-08-13 11:16 | disposition home or self-care (01) ==
PROVIDERS: PCP Internal Medicine; Referring Provider Internal Medicine; Visit Provider Internal Medicine Gastroenterology
PROC: 0DJ08ZZ Inspection of Upper Intestinal Tract, Via Natural or Artificial Opening Endoscopic (ICD-10-PCS; CPT 43235; principal; 2024-08-13 10:30)
DX: K22.70 Barrett's esophagus without dysplasia (principal); K29.30 Chronic superficial gastritis without bleeding; K44.9 Diaphragmatic hernia without obstruction or gangrene; K21.9 Gastro-esophageal reflux disease without esophagitis; R73.03 Prediabetes; E78.00 Pure hypercholesterolemia, unspecified; F41.9 Anxiety disorder, unspecified; Z79.84 Long term (current) use of oral hypoglycemic drugs; F17.210 Nicotine dependence, cigarettes, uncomplicated; F12.90 Cannabis use, unspecified, uncomplicated
CPT/HCPCS: 43239; 82948; 88305; J2003; J2704; J7120

== ENCOUNTER 2024-10-21 08:35 | Outpatient (CLI) | payer OTHER, SELFPAY ==
--- NOTE | ~2024-10-21 | XR_ITS ---
XR lumbar spine 2-3V 10/21/2024 08:52 Indication: Low back pain, chronic. Procedure: 3 views lumbar spine Comparison: 10/14/2015 Findings: There has been progression of disc narrowing and endplate hypertrophy at L5-S1. No acute fr acture or traumatic malalignment. No evidence for spondylolisthesis. There is facet hypertrophy at L5 -S1. Pedicles intact. Normal lumbar alignment. Sacral foramen are symmetric. Impression: 1: Moderate spondylosis at L5-S1 which has progressed since prior study. Reviewed, dictated and finalized at location A. OP ARCHITECT Impression: 1: Moderate spondylosis at L5-S1 which has progressed since prior study.
== END 2024-10-21 08:36 | disposition home or self-care (01) ==
PROVIDERS: PCP Internal Medicine; Visit Provider Internal Medicine
DX: M54.50 Low back pain, unspecified (principal); M43.06 Spondylolysis, lumbar region
CPT/HCPCS: 72100

== ENCOUNTER 2025-04-15 07:45 | Outpatient (CLI) | payer OTHER, SELFPAY ==
--- OUTSIDE RECORDS SUMMARY | 2025-04-15 07:48 | XMS_ITS | Clinical Summary ---
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 This disclosure is being madepursuant to the Care Everywhere program and may not contain all information available regarding this patient. Last updated 18.[employer] Allergies Active Allergy Reactions Criticality Noted Date Comments Contrast-Iodinated Agents For Ct/Other Other,GI Discomfort 02/02/2014 Pt gets warm Medications * Be aware that medications may not be up to date on this document. Alwaysverify current medications with the patient. ranitidine (ZANTAC) 300 MG tablet Take 300 mg by mouth once daily. Active esomeprazole (NEXIUM) 40 MG capsule Take 40 mg by mouth daily before breakfast. Active ALPRAZolam (XANAX) 2 MG tablet Take 2 mg by mouth 2 times daily. Active simvastatin (ZOCOR) 20 MG tablet Take 20 mg by mouth at bedtime. Active Calcium Carbonate Antacid (GAVISCON ACID BRKTHRGH FORMULA PO) Take by mouth. Active hydrocodone-acet aminophen (NORCO) 5-325 MG tablet Take 1 Tab by mouth every 8 hours as needed for Pain. 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 Gender Identity Not on file Sexual Orientation Not on file Last Filed Vital Signs Vital Sign Reading Time Taken Comments Blood Pressure 139/94 05/07/2014 11:19 PM CDT Pulse 95 05/07/2014 11:19 PM CDT Temperature 36.9 C (98.4 F) 05/07/2014 11:19 PM CDT Respiratory Rate 12 05/07/2014 11:19 PM CDT Oxygen Saturation 97% 05/07/2014 11:19 PM CDT Inhaled Oxygen Concentration - - Weight 69.4 kg (153 lb) 05/07/2014 11:19 PM CDT Height 175.3 cm (5' 9) 05/07/2014 11:19 PM CDT Body Mass Index 22.59 05/07/2014 11:19 PM CDT Plan of Treatment Health Maintenance Due Date Last Done Comments COLOGUARD (AGES 45-75) - COL ON CA SCREENING 1965 COLON MONITORING 1965 COLONOSCOPY - COLON CA SCREENING 1965 CT COLONOGRAPHY - COLON CA SCREENING 1965 Colorectal Cancer Screening 1965 FIT - COLON CA SCREENING 1965 FLEX SIG - COLON CA SCREENING 1965 HIV SCREENING 1980 HEPATITIS C SCREENING 12/01/1983 DTAP/TDAP/TD VACCINES (1 - Tdap) 1984 HEPATITIS B VACCINE (1 of 3 - 19+ 3-dose series) 1984 PNEUMOCOCCAL VACCINE 50+ (1 of 2 - PCV) 1984 ZOSTER VACCINE (1 of 2) 12/06/2015 COVID-19 VACCINE (1 - 2023-2 5 season) 2024 DEPRESSION SCREENING 09/30/2024 INFLUENZA VACCINE (#1) 2025 HIB VACCINE Aged Out No longer eligi ble based on patient's age to complete this topic HPV VACCINE Aged Out No longer eligi ble based on patient's age to complete this topic MENINGOCOCCAL (Group B) VACC INE SHARED DECISION-MAKING Aged Out No longer eligibl e based on patient's age to complete this topic MENINGOCOCCAL GROUPS A/C/Y/W VACCINE Aged Out No longer eligible b ased on patient's age to complete this topic Insurance [facility] [place]ICAID - [place] [facility] SELF PAY NO INSURANCE Member Subscriber Plan / Payer (Ef fective for All Dates) Name:Ascencion Dickson Member ID:Not on file Relation to Subscriber:Not on file Name:ASCENCION DICKSON Subscriber ID:Not on file (Home) Address: [address] [place] [address] Payer ID:Not on file Group ID:Not on file Type:Self Pay Address: [place], [place] Care Teams Machine Adjuster Helper Relationship Specialty Start Date End Date Matty Caceres MD [address] [place], [place] [id number] PCP - General 08/02/21
[2025-04-15 07:57] LABS: Hematocrit 47.6 % (40.0-54.0); Hemoglobin 15.8 g/dL (14.0-18.0); Mean Corpuscular HGB Conc 33.2 g/dL (32-36); Mean Corpuscular Hemoglobin 30.1 pg (27.0-31.0); Mean Corpuscular Volume 90.7 fL (78.0-102.0); Platelet Count Result 289 K/mm3 (150-420); Red Blood Count 5.25 M/mm3 (4.70-6.10); White Blood Count 11.0 K/mm3 (4.8-10.8)
[2025-04-15 07:58] LABS: Add Urine Microscopic? NO; Appearance Urine Clear (Clear); Glucose Urine UA Negative (Negative); Leukocyte Esterase Ur Negative LEU/UL (Negative); Nitrate Urine Negative (Negative); Specific Grav Ur >= 1.030 (1.010-1.020)
[2025-04-15 08:18] LABS: Hemoglobin A1C 6.1 % (<5.7)
[2025-04-15 08:19] LABS: MALB Creatinine Ratio 7.3 mg/g (0-30)
[2025-04-15 08:42] LABS: Alanine Aminotransferase 20 U/L (6-50); Albumin Level 4.3 g/dL (3.5-5.1); Alkaline Phosphatase 84 U/L (38-126); Anion Gap 6 mmol/L (4-12); Aspartate Amino Transferase 26 U/L (17-59); Bilirubin,Total 0.6 mg/dL (0.2-1.3); Blood Urea Nitrogen 9 mg/dL (9-20); Calcium 8.8 mg/dL (8.4-10.2); Carbon Dioxide 25 mmol/L (22-30); Chloride 107 mmol/L (98-107); Cholesterol 261 mg/dL (0-200); Estimated Glomerular Filt Rate > 60; Glucose 124 mg/dL (65-110); HDL Direct 29 mg/dL; Osmolality Calculated 285 mOsm/kg (285-295); Potassium 4.3 mmol/L (3.4-5.0); Sodium 138 mmol/L (137-145); Total Protein 7.1 g/dL (6.3-8.2); Triglycerides 274 mg/dL (<150)
[2025-04-15 09:11] LABS: Prostate Specific Antigen 0.4 ng/mL (< OR = 4.0)
== END 2025-04-15 07:46 | disposition home or self-care (01) ==
LOC: CHSLAB 07:46
PROVIDERS: PCP Internal Medicine; Visit Provider Internal Medicine
DX: R35.1 Nocturia (principal); E11.9 Type 2 diabetes mellitus without complications; E78.5 Hyperlipidemia, unspecified
CPT/HCPCS: 36415; 80053; 80061; 81003; 82043; 83036; 84153; 85027

== ENCOUNTER 2025-06-08 07:37 | Outpatient (CLI) | payer OTHER, SELFPAY ==
--- OUTSIDE RECORDS SUMMARY | 2025-06-08 07:58 | XMS_ITS | Clinical Summary ---
Author Organization [facility] Address [address] [place] [address] Care Team Providers Care Steam Trap Man Name Role Phone Matty Caceres MD Primary Care Provider [phone] Source Comments [facility],non-owned Affiliates and Associated Physician Practices is amultiple site organization consisting of ambulatory clinics and hospital sitesin [place], [place], [place] and [place]. This disclosure is being madepursuant to the Care Everywhere program and may not contain all information available regarding this patient. 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 Gender Identity Not on file Sexual Orientation [...] 1984 ZOSTER VACCINE (1 of 2) 12/06/2015 DEPRESSION SCREENING 09/30/2024 COVID-19 VACCINE (1 - 2023-2 5 season) 2025 INFLUENZA VACCINE (#1) 2025 HIB VACCINE Aged [...] patient's age to complete this topic Insurance [facility] MEDICAID - [place] [facility] SELF PAY NO INSURANCE Member Subscriber Plan / Payer (Ef fective for All Dates) Name:Ascencion Dickson Member ID:Not on file Relation to Subscriber:Not on file Name:ASCENCION DICKSON Subscriber ID:Not on file (Home) Address: [address] [place] [address] Payer ID:Not on file Group ID:Not on file Type:Self Pay Address: [place], [place] Care Teams Steam Trap Man Relationship Specialty Start Date End Date Matty Caceres MD [address] [place], [place] [id number] PCP - General 08/02/21
[2025-06-08 08:46] LABS: Alanine Aminotransferase 25 U/L (6-50); Albumin Level 4.6 g/dL (3.5-5.1); Alkaline Phosphatase 75 U/L (38-126); Anion Gap 11 mmol/L (4-12); Aspartate Amino Transferase 27 U/L (17-59); Bilirubin,Total 0.6 mg/dL (0.2-1.3); Blood Urea Nitrogen 11 mg/dL (9-20); Calcium 9.5 mg/dL (8.4-10.2); Carbon Dioxide 27 mmol/L (22-30); Chloride 102 mmol/L (98-107); Cholesterol 207 mg/dL (0-200); Estimated Glomerular Filt Rate > 60; Glucose 120 mg/dL (65-110); HDL Direct 36 mg/dL; Osmolality Calculated 290 mOsm/kg (285-295); Potassium 4.6 mmol/L (3.4-5.0); Sodium 140 mmol/L (137-145); Total Protein 7.3 g/dL (6.3-8.2); Triglycerides 244 mg/dL (<150)
== END 2025-06-08 07:38 | disposition home or self-care (01) ==
LOC: CHSLAB 07:38
PROVIDERS: PCP Internal Medicine; Visit Provider Internal Medicine Cardiovascular Disease
DX: E78.00 Pure hypercholesterolemia, unspecified (principal)
CPT/HCPCS: 36415; 80053; 80061